=== PATIENT | male | born 1990 | race Hispanic/Latino ===

== ENCOUNTER 2018-11-20 06:57 | Emergency (ER) | payer SELFPAY ==
[2018-11-20] MEDS ORDERED: NA CHLORIDE 0.9% 1,000 ML ONE (07:26)
[2018-11-20] MEDS ORDERED: MORPHINE 4 MG/ML SYR ONE (07:26)
[2018-11-20] MEDS ORDERED: ONDANSETRON 4 MG/2 ML VIAL ONE (07:27)
[2018-11-20 07:56] LABS: Absolute Lymphocytes (CBC) 1.6 K/uL (0.7-4.9); Absolute Monocytes 0.6 K/uL (0.1-1.3); Absolute Neutrophil 5.8 K/uL (1.8-8.0); Basophils % 0.5 % (0-1.3); Eosinophils % 1.1 % (0-4.4); Hematocrit 42.4 % (39.6-49.0); Lymphocytes % 20.1 % (15.3-44.8); MPV 7.8 fL (7.6-11.3); Monocytes % 7.1 % (3.3-12.3); RBC Red Blood Cell Count 5.03 M/uL (4.33-5.43)
--- NOTE | 2018-11-20 08:09 | RAD REPORT ---
EXAM DESCRIPTION: CT - Stone Protocol - 11/20/2018 7:47 am CLINICAL HISTORY: Flank pain. left flank pain COMPARISON: No comparisons TECHNIQUE: Axial images were obtained without oral or IV contrast. Lack of contrast limits solid org an and vascular assessment. The [id number] spans the entirety of the system partially obscuring uppermost abdomen and lung bases. Coronal reformatted images were obtained and reviewed. All CT scans are performed using dose optimization technique as appropriate and may include automated exposure control or mA/KV adjustment according to patient size. FINDINGS: The lower lung shukla are clear. Imaged portions of the liver and spleen show no suspicious findings on non-contrast imaging. The panc reas and adrenal glands are normal. No pathologic lymphadenopathy in the abdomen or pelvis. 4 mm calculus (650 HU) is present in the distal left ureter with mild left hydronephrosis. No additio nal calculus identified. No bowel obstruction, free air, free fluid or abscess. Normal appendix noted. No significant bony abnormality. IMPRESSION: 4 mm calculus is present in the distal left ureter resulting in mild left hydronephrosis .
[2018-11-20 08:14] LABS: BUN Blood Urea Nitrogen 16 mg/dL (7-18); Bicarbonate 29 mmol/L (21-32); Glucose Level 146 mg/dL (74-106); Potassium 3.6 mmol/L (3.5-5.1); Sodium Level 144 mmol/L (136-145)
[2018-11-20] MEDS ORDERED: TAMSULOSIN 0.4 MG SR CAP ONE (08:37)
[2018-11-20] MEDS ORDERED: MAGNESIUM SULFATE 1 gm IVPB 1 GM/100 ML BAG IV ONE (08:37)
--- NOTE | 2018-11-20 09:07 | EDPHYS ---
Physician Documentation [facility] Name: Arnaud Gomez Age: 28 yrs Sex: Male : 1990 Arrival Date: 11/20/2018 Time: 06:58 Bed 20 Private MD: ED Physician Sawyer Armando HPI: 11/20 07:43 This 28 yrs old Male presents to ER via Ambulatory with complaints of Abd pain.rn 07:43 The patient complains of pain in the left mid back. The pain radiates to the pelvis. rn Onset: The symptoms/episode began/occurred this morning. Modifying factors: The symptoms are alleviated by nothing. the symptoms are aggravated by nothing. Severity of pain: At its worst the pain was moderate in the emergency department the pain has improved. The patient has not experienced similar symptoms in the past. This morning felt pain to flank, by time got to work, radiating to groin/testicle on left side, denies pain from testicle and no testicular tenderness or abnormality. No trauma. Reports pain coming in waves. . Historical: - Allergies: 07:08 No Known Allergies; hj - Home Meds: 07:08 None [Active]; hj - PMHx: 07:08 None; hj - PSHx: 07:08 None; hj - Immunization history:: Adult Immunizations up to date. - Social history:: Smoking status: Patient/guardian denies using tobacco, Patient/guardian denies using alcohol. - Ebola Screening: : Patient negative for fever greater than or equal to 101.5 degrees Fahrenheit, and additional compatible Ebola Virus Disease symptoms Patient denies exposure to infectious person Patient denies travel to an Ebola-affected area in the 21 days before illness onset. - Family history:: not pertinent. - Hospitalizations: : No recent hospitalization is reported. ROS: 07:43 Constitutional: Negative for fever, chills, and weight loss, Eyes: Negative for injury, rn pain, redness, and discharge, Cardiovascular: Negative for chest pain, palpitations, and edema, Respiratory: Negative for shortness of breath, cough, wheezing, and pleuritic chest pain, Abdomen/GI: + left flank pain Back: Negative for injury MS/Extremity: Negative for injury and deformity, Skin: Negative for injury, rash, and discoloration, Neuro: Negative for headache, weakness, numbness, tingling, and seizure. Exam: 07:43 Constitutional: This is a well developed, well nourished patient who is awake, alert, rn appears uncomfortable, but walking to room without assistance Head/Face: Normocephalic, atraumatic. Eyes: Pupils equal round and reactive to light, extra-ocular motions intact. Lids and lashes normal. Conjunctiva and sclera are non-icteric and not injected. Cornea within normal limits. Periorbital areas with no swelling, redness, or edema. ENT: MMM Abdomen/GI: soft, non-tender Back: No spinal tenderness. No costovertebral tenderness. Full range of motion. Skin: Warm, dry with normal turgor. Normal color with no rashes, no lesions, and no evidence of cellulitis. MS/ Extremity: Pulses equal, no cyanosis. Neurovascular intact. Full, normal range of motion. Equal circumference. Neuro: Awake and alert, GCS 15, oriented to person, place, time, and situation. Cranial nerves II-XII grossly intact. Motor strength 5/5 in all extremities. Sensory grossly intact. Cerebellar exam normal. Normal gait. Vital Signs: 07:09 BP 134 / 76; Pulse 102; Resp 18; Temp 97.2(TE); Pulse Ox 100% on R/A; Weight 87.54 kg; Height 5 ft. 4 in. (162.56 cm); Pain 10/10; 08:00 BP 128 / 74; Pulse 85; Resp 18; Pulse Ox 100% on R/A; hj 09:27 BP 108 / 75; Pulse 75; Resp 18; Pulse Ox 100% on R/A; 07:09 Body Mass Index 33.13 (87.54 kg, 162.56 cm) MDM: 06:59 Patient medically screened. rn 09:04 Differential diagnosis: nephrolithiasis. Data reviewed: vital signs, nurses notes, clinical lab assistant test result(s), radiologic studies, CT scan, and as a result, I will discharge patient. Counseling: I had a detailed discussion with the patient and/or guardian regarding: the historical points, exam findings, and any diagnostic results supporting the discharge/admit diagnosis, lab results, radiology results, the need for outpatient follow up, to return to the emergency department if symptoms worsen or persist or if there are any questions or concerns that arise at home. Response to treatment: the patient's symptoms have markedly improved after treatment, and as a result, I will discharge patient. Special discussion: I discussed with the patient/guardian in detail that at this point there is no indication for admission to the hospital. It is understood, however, that if the symptoms persist or worsen the patient needs to return immediately for re-evaluation. 11/20 07:07 Order name: Basic Metabolic Panel; Complete Time: 08:23 rn 11/20 07:07 Order name: CBC with Diff; Complete Time: 08:23 rn 11/20 07:07 Order name: CT Stone Protocol; Complete Time: 08:23 rn 11/20 09:01 Order name: Urine Dipstick--Ancillary (enter results) bd 11/20 07:07 Order name: IV Saline Lock; Complete Time: 07:55 rn 02 07:07 Order name: Labs collected and sent; Complete Time: 07:55 rn Administered Medications: 07:55 Drug: Zofran 4 mg Route: IVP; Site: left forearm; hj 08:23 Follow up: Response: No adverse reaction hj 07:55 Drug: morphine 4 mg Route: IVP; Site: left forearm; hj 08:23 Follow up: Response: No adverse reaction; Pain is decreased hj 07:56 Drug: NS 0.9% 1000 ml Route: IV; Rate: 1000 ml; Site: left forearm; hj 08:23 Follow up: IV Status: Completed infusion hj 08:11 Drug: Flomax 0.4 mg Route: PO; hj 08:59 Follow up: Response: No adverse reaction hj 08:11 Drug: Magnesium Sulfate 1 grams Route: IVPB; Infused Over: 1 hrs; Site: left forearm; hj 09:30 Follow up: IV Status: Completed infusion; IV Intake: 100ml hj 08:37 Drug: TORadol 30 mg Route: IVP; Site: left forearm; hj 09:31 Follow up: Response: No adverse reaction; Pain is decreased hj Disposition: 11/20/18 09:06 Discharged to Home. Impression: Ureterolithiasis. - Condition is Stable. - Discharge Instructions: Kidney Stones. - Prescriptions for Zofran ODT 4 mg Oral tablet,disintegrating - place 1 tablet by TRANSLINGUAL route every 8 hours As needed; 20 tablet. Ibuprofen 800 mg Oral Tablet - take 1 tablet by ORAL route every 12 hours As needed take with food; 20 tablet. Tylenol- Codeine #3 300-30 mg Oral Tablet - take 1 tablet by ORAL route every 6 hours As needed; 15 tablet. Flomax 0.4 mg Oral Capsule, Sust. Release 24 hr - take 1 capsule by ORAL route once daily 1/2 hour following the same meal each day; 3 capsule. - Medication Reconciliation Form, Thank You Letter, Antibiotic Education, Prescription Opioid Use, Work release form form. - Follow up: Private Physician; When: As needed; Reason: Recheck today's complaints, Re-evaluation by your physician. - Problem is new. - Symptoms have improved. Signatures: Dispatcher [employer] EDSawyer Rock MD MD rn Joaquin, Henry, RN RN hj Corrections: (The following items were deleted from the chart) 09:30 09:06 11/20/2018 09:06 Discharged to Home. Impression: Ureterolithiasis. Condition is hj Stable. Forms are Medication Reconciliation Form, Thank You Letter, Antibiotic Education, Prescription Opioid Use. Follow up: Private Physician; When: As needed; Reason: Recheck today's complaints, Re-evaluation by your physician. Problem is new. Symptoms have improved. rn
--- NOTE | 2018-11-20 09:07 | ER ---
Nurse's Notes [facility] Name: Arnaud Gomez Age: 28 yrs Sex: Male : 1990 Arrival Date: 11/20/2018 Time: 06:58 Bed 20 Private MD: Diagnosis: Ureterolithiasis Presentation: 11/20 07:06 Presenting complaint: Patient states: i woke up this morning with pain on my L flank hj area that moves to my L testicle, pain is 10/10; reports nausea, denies vomiting; denies fever and chills;. Transition of care: patient was not received from another setting of care. Onset of symptoms was November 20, 2018. Risk Assessment: Do you want to hurt yourself or someone else? Patient reports no desire to harm self or others. Initial Sepsis Screen: Does the patient meet any 2 criteria? No. Patient's initial sepsis screen is negative. Does the patient have a suspected source of infection? No. Patient's initial sepsis screen is negative. Care prior to arrival: None. 07:06 Method Of Arrival: Ambulatory 07:06 Acuity: KIKI 3 hj Triage Assessment: 07:09 General: Appears in no apparent distress. uncomfortable, Behavior is calm, cooperative, hj appropriate for age. Pain: Complains of pain in L flank, L testicle. Historical: - Allergies: 07:08 No Known Allergies; hj - Home Meds: 07:08 None [Active]; hj - PMHx: 07:08 None; hj - PSHx: 07:08 None; hj - Immunization history:: Adult Immunizations up to date. - Social history:: Smoking status: Patient/guardian denies using tobacco, Patient/guardian denies using alcohol. - Ebola Screening: : Patient negative for fever greater than or equal to 101.5 degrees Fahrenheit, and additional compatible Ebola Virus Disease symptoms Patient denies exposure to infectious person Patient denies travel to an Ebola-affected area in the 21 days before illness onset. - Family history:: not pertinent. - Hospitalizations: : No recent hospitalization is reported. Screenin:09 Abuse screen: Denies threats or abuse. Denies injuries from another. Nutritional hj screening: No deficits noted. Tuberculosis screening: No symptoms or risk factors identified. Fall Risk None identified. Assessment: 08:00 Reassessment: Patient and/or family updated on plan of care and expected duration. Pain hj level reassessed. Patient is alert, oriented x 3, equal unlabored respirations, skin warm/dry/pink. Patient states feeling better. Patient states symptoms have improved. 09:00 Reassessment: Patient and/or family updated on plan of care and expected duration. Pain hj level reassessed. Patient is alert, oriented x 3, equal unlabored respirations, skin warm/dry/pink. Patient states feeling better. Patient states symptoms have improved. awaiting results and POC;. 09:27 Reassessment: Patient and/or family updated on plan of care and expected duration. Pain hj level reassessed. Patient is alert, oriented x 3, equal unlabored respirations, skin warm/dry/pink. D/C instructions given;. Vital Signs: 07:09 BP 134 / 76; Pulse 102; Resp 18; Temp 97.2(TE); Pulse Ox 100% on R/A; Weight 87.54 kg; hj Height 5 ft. 4 in. (162.56 cm); Pain 10/10; 08:00 BP 128 / 74; Pulse 85; Resp 18; Pulse Ox 100% on R/A; hj 09:27 BP 108 / 75; Pulse 75; Resp 18; Pulse Ox 100% on R/A; hj 07:09 Body Mass Index 33.13 (87.54 kg, 162.56 cm) ED Course: 06:58 Patient arrived in ED. am2 06:59 Sawyer Armando MD is Attending Physician. rn 07:06 Nadeem Sullivan RN is Primary Nurse. hj 07:08 Triage completed. hj 07:09 Arm band placed on right wrist. hj 07:09 Patient has correct armband on for positive identification. Placed in gown. Bed in low hj position. Call light in reach. Side rails up X 1. 07:09 Initial lab(s) drawn, by ED staff, sent to lab. Inserted saline lock: 20 gauge in left hj forearm, using aseptic technique. ,using aseptic technique. SN Rebecca. 07:45 CT completed. Patient tolerated procedure well. Patient moved to CT via wheelchair. kw1 Patient moved back from CT. 07:54 CT Stone Protocol In Process Unspecified. EDMS 09:27 No provider procedures requiring assistance completed. IV discontinued, intact, hj bleeding controlled, No redness/swelling at site. Pressure dressing applied. Administered Medications: 07:55 Drug: Zofran 4 mg Route: IVP; Site: left forearm; hj 08:23 Follow up: Response: No adverse reaction hj 07:55 Drug: morphine 4 mg Route: IVP; Site: left forearm; hj 08:23 Follow up: Response: No adverse reaction; Pain is decreased hj 07:56 Drug: NS 0.9% 1000 ml Route: IV; Rate: 1000 ml; Site: left forearm; hj 08:23 Follow up: IV Status: Completed infusion hj 08:11 Drug: Flomax 0.4 mg Route: PO; hj 08:59 Follow up: Response: No adverse reaction hj 08:11 Drug: Magnesium Sulfate 1 grams Route: IVPB; Infused Over: 1 hrs; Site: left forearm; hj 09:30 Follow up: IV Status: Completed infusion; IV Intake: 100ml hj 08:37 Drug: TORadol 30 mg Route: IVP; Site: left forearm; hj 09:31 Follow up: Response: No adverse reaction; Pain is decreased hj Intake: 09:30 IV: 100ml; Total: 100ml. Outcome: 09:06 Discharge ordered by . rn 09:28 Discharged to home ambulatory. 09:28 Condition: stable 09:28 Discharge instructions given to patient, Instructed on discharge instructions, follow up and referral plans. medication usage, Demonstrated understanding of instructions, follow-up care, medications. 09:30 Patient left the ED. Signatures: Dispatcher [employer] EDMS Sawyer Armando MD MD rn Joaquin, Henry, RN RN hj Moreno, Amanda am2 Wilhelm, Kimberly 1 Corrections: (The following items were deleted from the chart) 07:18 07:09 Resp 18bpm; 87.54 kg; Height 5 ft. 4 in.; BMI: 33.1; Pain 10/10; [facility]
[2018-11-20] MEDS ORDERED: KETOROLAC 30 MG/ML INJ ONE (09:14)
[2018-11-20 09:38] LABS: Urine Blood 2+ (NEG); Urine Glucose NEGATIVE (NEG); Urine Protein NEGATIVE (NEG); Urine Specific Gravity 1.015 (1.005-1.030); Urine pH 6.5 (5.0-7.0)
== END 2018-11-20 09:30 | disposition home or self-care (01) ==
LOC: ER 06:57
DX: N20.1 Calculus of ureter (principal)
CPT/HCPCS: 36415; 74176; 76377; 80048; 81003; 85025; 96365; 96375; 99284; J2405; J3475; J7030

== ENCOUNTER 2019-03-04 07:55 | Emergency (ER) | payer SELFPAY ==
[2019-03-04 08:32] LABS: Absolute Lymphocytes (CBC) 0.8 K/uL (0.7-4.9); Absolute Monocytes 0.5 K/uL (0.1-1.3); Basophils % 0.3 % (0-1.3); Eosinophils % 0.4 % (0-4.4); Hematocrit 44.9 % (39.6-49.0); MPV 7.6 fL (7.6-11.3); RBC Red Blood Cell Count 5.28 M/uL (4.33-5.43)
--- NOTE | 2019-03-04 08:38 | RAD REPORT ---
EXAM DESCRIPTION: CT - Stone Protocol - 03/04/2019 8:25 am CLINICAL HISTORY: Flank pain. ABD PAIN COMPARISON: Stone Protocol dated 11/20/2018 TECHNIQUE: Axial images were obtained without oral or IV contrast. Lack of contrast limits solid org an and vascular assessment. The [id number] spans the entirety of the system partially obscuring uppermost abdomen and lung bases. Coronal reformatted images were obtained and reviewed. All CT scans are performed using dose optimization technique as appropriate and may include automated exposure control or mA/KV adjustment according to patient size. FINDINGS: The lower lung shukla are clear. Imaged portions of the liver and spleen show no suspicious findings on non-contrast imaging. The panc reas and adrenal glands are normal. No pathologic lymphadenopathy in the abdomen or pelvis. 4 mm stone (1070 HU) at the left UVJ resulting in mild left hydronephrosis and hydroureter. No right- sided stone or hydronephrosis. No bowel obstruction, free air, free fluid or abscess. Normal appendix noted. No significant bony abnormality. IMPRESSION: 4 mm stone at the left UVJ resulting in mild left hydronephrosis and hydroureter.
[2019-03-04 08:41] LABS: Potassium 3.6 mmol/L (3.5-5.1)
--- NOTE | 2019-03-04 09:12 | ER ---
Nurse's Notes [facility] Name: Arnaud Gomez Age: 28 yrs Sex: Male : 1990 Arrival Date: 03/04/2019 Time: 07:58 Bed 19 Private MD: Diagnosis: Calculus of kidney and ureter Presentation: 03/04 08:09 Presenting complaint: Patient states: i started having this L lower abd pain 3 am hj today, it seems like my stone act up again; denies fever and chills;. 08:09 Transition of care: patient was not received from another setting of care. Onset of hj symptoms was March 04, 2019. Risk Assessment: Do you want to hurt yourself or someone else? Patient reports no desire to harm self or others. Initial Sepsis Screen: Does the patient meet any 2 criteria? No. Patient's initial sepsis screen is negative. Does the patient have a suspected source of infection? No. Patient's initial sepsis screen is negative. Care prior to arrival: None. 08:09 Method Of Arrival: Ambulatory 08:09 Acuity: KIKI 3 hj Triage Assessment: 08:09 General: Appears in no apparent distress. uncomfortable, Behavior is calm, cooperative, hj appropriate for age. Pain: Complains of pain in right lower quadrant and left upper quadrant and right upper quadrant and left lower quadrant. EENT: No signs and/or symptoms were reported regarding the EENT system. Neuro: Level of Consciousness is awake, alert, obeys commands, Oriented to person, place, time, situation, Appropriate for age. Cardiovascular: Capillary refill < 3 seconds Patient's skin is warm and dry. Respiratory: Airway is patent Respiratory effort is even, unlabored, Respiratory pattern is regular, symmetrical. GI: Reports lower abdominal pain. : No signs and/or symptoms were reported regarding the genitourinary system. Derm: No signs and/or symptoms reported regarding the dermatologic system. Musculoskeletal: No signs and/or symptoms reported regarding the musculoskeletal system. Historical: - Allergies: 08:09 No Known Allergies; hj - Home Meds: 08:09 None [Active]; hj - PMHx: 08:09 Kidney stones; hj - PSHx: 08:09 None; hj - Immunization history:: Adult Immunizations up to date. - Social history:: Smoking status: Patient/guardian denies using tobacco, Patient uses alcohol, on a daily basis. - Ebola Screening: : Patient negative for fever greater than or equal to 101.5 degrees Fahrenheit, and additional compatible Ebola Virus Disease symptoms Patient denies exposure to infectious person Patient denies travel to an Ebola-affected area in the 21 days before illness onset. Screenin:09 Abuse screen: Denies threats or abuse. Denies injuries from another. Nutritional hj screening: No deficits noted. Tuberculosis screening: No symptoms or risk factors identified. Fall Risk None identified. Assessment: 08:09 GI: Bowel sounds present X 4 quads. Abd is soft Abdomen is tender to palpation. hj 08:09 Reassessment: see triage for assessment;. hj 09:25 Reassessment: Patient and/or family updated on plan of care and expected duration. Pain hj level reassessed. Patient is alert, oriented x 3, equal unlabored respirations, skin warm/dry/pink. IV mag running; for D/C;. Vital Signs: 08:09 BP 127 / 100; Pulse 69; Resp 18; Temp 97.8(O); Pulse Ox 100% on R/A; Weight 72.57 kg; hj Height 5 ft. 5 in. (165.10 cm); Pain 9/10; 09:25 BP 110 / 83; Pulse 70; Resp 18; Pulse Ox 100% on R/A; hj 10:17 BP 108 / 65; Pulse 68; Resp 18; Pulse Ox 100% on R/A; hj 08:09 Body Mass Index 26.63 (72.57 kg, 165.10 cm) ED Course: 07:58 Patient arrived in ED. rg4 08:03 Migdalia Billingsley FNP-C is PHCP. kb 08:03 Sawyer Armando MD is Attending Physician. kb 08:04 Nadeem Sullivan, CHRISTIANNE is Primary Nurse. hj 08:09 Arm band placed on right wrist. hj 08:09 Patient has correct armband on for positive identification. Bed in low position. Call light in reach. Side rails up X 1. 08:15 Triage completed. hj 08:15 Initial lab(s) drawn, by ar, sent to lab. Inserted saline lock: 22 gauge in left antecubital area, using aseptic technique. Blood collected. 08:20 CBC with Diff Sent. hj 08:20 Basic Metabolic Panel Sent. hj 08:25 CT Stone Protocol In Process Unspecified. EDMS 08:25 CT completed. Patient tolerated procedure well. Patient moved to CT via wheelchair. [id number] Patient moved back from CT. 09:11 Mackenzie Galan MD is Referral Physician. kb 10:15 No provider procedures requiring assistance completed. IV discontinued, intact, hj bleeding controlled, No redness/swelling at site. Pressure dressing applied. Administered Medications: 09:03 Drug: Magnesium Sulfate 1 grams Route: IVPB; Infused Over: 1 hrs; Site: left hj antecubital; : Follow up: IV Status: Infusion continued hj 10:16 Follow up: IV Status: Completed infusion; IV Intake: 100ml hj 09:03 Drug: Flomax 0.4 mg Route: PO; hj : Follow up: Response: No adverse reaction hj Intake: 10:16 IV: 100ml; Total: 100ml. hj Outcome: 09:11 Discharge ordered by MD. kb 10:15 Discharged to home ambulatory. hj 10:15 Condition: stable 10:15 Discharge instructions given to patient, Instructed on discharge instructions, follow up and referral plans. medication usage, Demonstrated understanding of instructions, follow-up care, medications, Prescriptions given X 4. 10:17 Patient left the ED. Signatures: Dispatcher [employer] Migdalia Steele, DAVID BARRON-Nadeem Dow, RN Dione Myers4 Gena Pandag6
--- NOTE | 2019-03-04 09:12 | EDPHYS ---
Physician Documentation [facility] Name: Arnaud Gomez Age: 28 yrs Sex: Male : 1990 Arrival Date: 03/04/2019 Time: 07:58 Bed 19 Private MD: ED Physician Sawyer Armando HPI: 03/04 08:11 This 28 yrs old Male presents to ER via Unassigned with complaints of Possible kb Kidney Stone. 08:11 The patient presents with abdominal pain in the left lower quadrant. Onset: The kb symptoms/episode began/occurred this morning, at 03:00. The symptoms do not radiate. Associated signs and symptoms: none. The symptoms are described as constant, sharp. Modifying factors: The symptoms are alleviated by nothing, the symptoms are aggravated by nothing. Severity of pain: At its worst the pain was moderate in the emergency department the pain is unchanged. The patient has experienced a previous episode, and the symptoms today are exactly the same, same as last time he had a kidney stone. The patient has not recently seen a physician. Historical: - Allergies: 08:09 No Known Allergies; hj - Home Meds: 08:09 None [Active]; hj - PMHx: 08:09 Kidney stones; hj - PSHx: 08:09 None; hj - Immunization history:: Adult Immunizations up to date. - Social history:: Smoking status: Patient/guardian denies using tobacco, Patient uses alcohol, on a daily basis. - Ebola Screening: : Patient negative for fever greater than or equal to 101.5 degrees Fahrenheit, and additional compatible Ebola Virus Disease symptoms Patient denies exposure to infectious person Patient denies travel to an Ebola-affected area in the 21 days before illness onset. ROS: 08:11 Constitutional: Negative for fever, chills, and weight loss, Neck: Negative for injury, kb pain, and swelling, Cardiovascular: Negative for chest pain, palpitations, and edema, Respiratory: Negative for shortness of breath, cough, wheezing, and pleuritic chest pain, Back: Negative for injury and pain, : Negative for injury, bleeding, discharge, and swelling, MS/Extremity: Negative for injury and deformity, Skin: Negative for injury, rash, and discoloration, Neuro: Negative for headache, weakness, numbness, tingling, and seizure. 08:11 Abdomen/GI: Positive for abdominal pain, Negative for nausea, vomiting, and diarrhea. Exam: 08:10 Constitutional: This is a well developed, well nourished patient who is awake, alert, kb and in no acute distress. Head/Face: Normocephalic, atraumatic. Chest/axilla: Normal chest wall appearance and motion. Nontender with no deformity. No lesions are appreciated. Cardiovascular: Regular rate and rhythm with a normal S1 and S2. No gallops, murmurs, or rubs. Normal PMI, no JVD. No pulse deficits. Respiratory: Lungs have equal breath sounds bilaterally, clear to auscultation and percussion. No rales, rhonchi or wheezes noted. No increased work of breathing, no retractions or nasal flaring. Back: No spinal tenderness. No costovertebral tenderness. Full range of motion. Skin: Warm, dry with normal turgor. Normal color with no rashes, no lesions, and no evidence of cellulitis. MS/ Extremity: Pulses equal, no cyanosis. Neurovascular intact. Full, normal range of motion. Neuro: Awake and alert, GCS 15, oriented to person, place, time, and situation. Cranial nerves II-XII grossly intact. Motor strength 5/5 in all extremities. Sensory grossly intact. Cerebellar exam normal. Normal gait. 08:10 Abdomen/GI: Inspection: abdomen appears normal, Bowel sounds: normal, in all quadrants, Palpation: soft, in all quadrants, nontender, in the right upper quadrant, left upper quadrant and right lower quadrant, moderate abdominal tenderness, in the left lower quadrant. Vital Signs: 08:09 BP 127 / 100; Pulse 69; Resp 18; Temp 97.8(O); Pulse Ox 100% on R/A; Weight 72.57 kg; hj Height 5 ft. 5 in. (165.10 cm); Pain 9/10; 09:25 BP 110 / 83; Pulse 70; Resp 18; Pulse Ox 100% on R/A; hj 10:17 BP 108 / 65; Pulse 68; Resp 18; Pulse Ox 100% on R/A; hj 08:09 Body Mass Index 26.63 (72.57 kg, 165.10 cm) MDM: 08:04 Patient medically screened. kb 08:10 Data reviewed: vital signs, nurses notes. Data interpreted: Pulse oximetry: on room air kb is 100 %. Interpretation: normal. 09:11 Counseling: I had a detailed discussion with the patient and/or guardian regarding: the kb historical points, exam findings, and any diagnostic results supporting the discharge/admit diagnosis, lab results, radiology results, the need for outpatient follow up, a urologist, to return to the emergency department if symptoms worsen or persist or if there are any questions or concerns that arise at home. 03/04 08:09 Order name: CBC with Diff; Complete Time: 08:34 kb 03/04 08:09 Order name: Basic Metabolic Panel; Complete Time: 08:45 kb 03/04 08:09 Order name: CT Stone Protocol; Complete Time: 08:45 kb 03/04 08:45 Order name: Urine Dipstick--Ancillary (enter results) bd 03/04 08:09 Order name: IV Saline Lock; Complete Time: 08:20 kb 03/04 08:09 Order name: Labs collected and sent; Complete Time: 08:20 kb 03/04 08:09 Order name: Urine Dipstick-Ancillary (obtain specimen); Complete Time: 08:45 kb Administered Medications: 09:03 Drug: Magnesium Sulfate 1 grams Route: IVPB; Infused Over: 1 hrs; Site: left antecubital; 09:27 Follow up: IV Status: Infusion continued 10:16 Follow up: IV Status: Completed infusion; IV Intake: 100ml 09:03 Drug: Flomax 0.4 mg Route: PO; 09:27 Follow up: Response: No adverse reaction Disposition: 11:56 Co-signature as Attending Physician, Sawyer Armando MD. rn Disposition: 03/04/19 09:11 Discharged to Home. Impression: Calculus of kidney and ureter. - Condition is Stable. - Discharge Instructions: Kidney Stones, [id number], Dietary Guidelines to Help Prevent Kidney Stones. - Prescriptions for Flomax 0.4 mg Oral Capsule, Sust. Release 24 hr - take 1 capsule by ORAL route once daily 1/2 hour following the same meal each day; 10 capsule. Diclofenac Sodium 75 mg Oral Tablet, Delayed Release (E.C.) - take 1 tablet by ORAL route 2 times per day As needed; 30 tablet. Macrobid 100 mg Oral Capsule - take 1 capsule by ORAL route every 12 hours for 7 days; 14 capsule. Tylenol- Codeine #3 300-30 mg Oral Tablet - take 1 tablet by ORAL route every 6 hours As needed; 6 tablet. - Work release form, Medication Reconciliation Form, Thank You Letter, Antibiotic Education, Prescription Opioid Use form. - Follow up: Private Physician; When: 2 - 3 days; Reason: Recheck today's complaints, Continuance of care, Re-evaluation by your physician. Follow up: Emergency Department; When: As needed; Reason: Worsening of condition. Follow up: Mackenzie Galan MD; When: 2 - 3 days; Reason: Recheck today's complaints. Signatures: Dispatcher [employer] EDMS Migdalia Billingsley, SERVICE ADVISOR-C SERVICE ADVISOR-Ckb Sawyer Armando MD MD rn Joaquin, Henry, RN RN hj Corrections: (The following items were deleted from the chart) 08:11 08:10 Abdomen/GI: Inspection: obese Bowel sounds: normal, in all quadrants, Palpation: kb soft, in all quadrants, nontender, in the right upper quadrant, left upper quadrant and right lower quadrant, moderate abdominal tenderness, in the left lower quadrant, kb 10:17 09:11 03/04/2019 09:11 Discharged to Home. Impression: Calculus of kidney and ureter. hj Condition is Stable. Forms are Medication Reconciliation Form, Thank You Letter, Antibiotic Education, Prescription Opioid Use. Follow up: Private Physician; When: 2 - 3 days; Reason: Recheck today's complaints, Continuance of care, Re-evaluation by your physician. Follow up: Emergency Department; When: As needed; Reason: Worsening of condition. Follow up: Mackenzie Galan; When: 2 - 3 days; Reason: Recheck today's complaints. kb
[2019-03-04] MEDS ORDERED: TAMSULOSIN 0.4 MG SR CAP ONE (09:22)
[2019-03-04] MEDS ORDERED: MAGNESIUM SULFATE 1 gm IVPB 1 GM/100 ML BAG IV ONE (09:22)
[2019-03-04 12:18] LABS: Urine Glucose NEGATIVE (NEG); Urine Specific Gravity 1.015 (1.005-1.030)
[2019-03-04 12:19] LABS: Urine Blood TRACE (NEG); Urine Protein NEGATIVE (NEG)
== END 2019-03-04 10:17 | disposition home or self-care (01) ==
LOC: ER 07:55
DX: N20.0 Calculus of kidney (principal)
CPT/HCPCS: 36415; 74176; 76377; 80048; 81003; 85025; 96365; 99284; J3475

== ENCOUNTER 2019-03-05 04:52 | Emergency (ER) | payer SELFPAY ==
[2019-03-05 05:26] LABS: Absolute Lymphocytes (CBC) 1.4 K/uL (0.7-4.9); Absolute Monocytes 0.4 K/uL (0.1-1.3); Absolute Neutrophil 6.9 K/uL (1.8-8.0); Basophils % 0.2 % (0-1.3); Hematocrit 42.5 % (39.6-49.0); Lymphocytes % 15.8 % (15.3-44.8); MPV 7.5 fL (7.6-11.3); RBC Red Blood Cell Count 4.99 M/uL (4.33-5.43)
[2019-03-05] MEDS ORDERED: TAMSULOSIN 0.4 MG SR CAP ONE (05:27)
[2019-03-05] MEDS ORDERED: CEFTRIAXONE/SWI 1gm 1 GM/10 ML SYR ONE (05:27)
[2019-03-05] MEDS ORDERED: MORPHINE 4 MG/ML SYR ONE ×2 (05:27→08:47)
[2019-03-05] MEDS ORDERED: KETOROLAC 30 MG/ML INJ ONE (05:27)
[2019-03-05] MEDS ORDERED: NA CHLORIDE 0.9% 2,000 ML ONE (05:27)
[2019-03-05] MEDS ORDERED: ONDANSETRON 4 MG/2 ML VIAL ONE ×2 (05:27→08:47)
[2019-03-05 05:40] LABS: Potassium 3.5 mmol/L (3.5-5.1)
--- NOTE | 2019-03-05 06:54 | ER ---
Nurse's Notes [facility] Name: Arnaud Gomez Age: 28 yrs Sex: Male : 1990 Arrival Date: 03/05/2019 Time: 04:55 Bed 7 Private MD: Diagnosis: Hydronephrosis with renal and ureteral calculous obstruction Presentation: 03/05 05:04 Presenting complaint: Patient states: he was seen in ER yesterday morning dx kidney ak1 stone. pt stated he overslept and did not have his medications filled at the pharmacy. pt c/o increased pain this morning starting at 0200. Transition of care: patient was not received from another setting of care. Onset of symptoms is unknown. Risk Assessment: Do you want to hurt yourself or someone else? Patient reports no desire to harm self or others. Initial Sepsis Screen: Does the patient meet any 2 criteria? No. Patient's initial sepsis screen is negative. Does the patient have a suspected source of infection? No. Patient's initial sepsis screen is negative. Care prior to arrival: None. 05:04 Method Of Arrival: Ambulatory ak1 05:04 Acuity: KIKI 3 ak1 Triage Assessment: 05:07 General: Appears in no apparent distress. Behavior is calm, cooperative. Pain: ak1 Complains of pain in left flank, left lower abd. Historical: - Allergies: 05:06 No Known Allergies; ak1 - Home Meds: 05:06 None [Active]; ak1 - PMHx: 05:06 Kidney stones; ak1 - PSHx: 05:06 Hernia repair; ak1 - Immunization history:: Adult Immunizations unknown. - Social history:: Smoking status: Patient/guardian denies using tobacco. - Ebola Screening: : No symptoms or risks identified at this time. Screenin:07 Abuse screen: Denies threats or abuse. Denies injuries from another. Nutritional ak1 screening: No deficits noted. Tuberculosis screening: No symptoms or risk factors identified. Fall Risk None identified. Assessment: 05:24 General: Appears in no apparent distress. comfortable, Behavior is calm, cooperative, aa1 appropriate for age. Pain: Complains of pain in left lower quadrant and left upper quadrant and posterior aspect of left lateral abdomen and anterior aspect of left lateral abdomen and left mid back and left low back. Neuro: Level of Consciousness is awake, alert, obeys commands, Oriented to person, place, time, situation, Moves all extremities. Full function Gait is steady. Respiratory: Airway is patent Respiratory effort is even, unlabored, Respiratory pattern is regular, symmetrical. GI: Abdomen is non-distended, Reports lower abdominal pain, upper abdominal pain. : Reports pain in left flank(s), in lower back. EENT: No signs and/or symptoms were reported regarding the EENT system. Derm: Skin is intact, is healthy with good turgor, Skin is pink, warm \T\ dry. Musculoskeletal: Circulation, motion, and sensation intact. Capillary refill < 3 seconds, Range of motion: intact in all extremities. 06:47 Reassessment: Patient appears in no apparent distress at this time. Patient and/or aa1 family updated on plan of care and expected duration. Pain level reassessed. Patient is alert, oriented x 3, equal unlabored respirations, skin warm/dry/pink. Radiology at bedside for KUB. 07:15 Reassessment: RECD REPORT FROM DAYANNA FAUST. 28 HM P/W L FLANK PAIN. KUB COMPLETED, bp RESULTS PENDING FOR DISPO. 08:14 Reassessment: D/C STILL ON HOLD PENDING KUB RESULTS. bp 09:25 Reassessment: PT D/C HOME AMBULATORY WITH FAMILY, DX WITH HYDRONEPHROSIS AND RENAL bp CALCULUS. Vital Signs: 05:04 BP 139 / 92; Pulse 72; Resp 18; Temp 97.9(O); Pulse Ox 99% on R/A; Weight 88.45 kg (R); ak1 Height 5 ft. 1 in. (154.94 cm) (R); Pain 10/10; 06:00 BP 125 / 63; Pulse 64; Resp 18; Pulse Ox 98% on R/A; aa1 06:47 BP 113 / 76; Pulse 83; Resp 18; Pulse Ox 99% on R/A; Pain 7/10; aa1 07:17 BP 113 / 77; Pulse 51; Resp 16; Temp 98; Pulse Ox 98% ; bp 09:15 BP 119 / 76; Pulse 59; Resp 16; Temp 98; Pulse Ox 98% ; bp 05:04 Body Mass Index 36.84 (88.45 kg, 154.94 cm) il1 ED Course: 04:55 Patient arrived in ED. es 05:03 Willie Jose MD is Attending Physician. yoko 05:05 Triage completed. ak1 05:06 Arm band placed on Patient placed in an exam room, on a stretcher, on pulse oximetry, ak1 Patient notified of wait time. 05:07 Patient has correct armband on for positive identification. Placed in gown. Bed in low ak1 position. Call light in reach. Side rails up X 1. Pulse ox on. NIBP on. 05:10 Inserted saline lock: 20 gauge in right antecubital area, using aseptic technique. cc3 Blood collected. 06:53 Mackenzie Galan MD is Referral Physician. yoko 07:05 Abdomen 1 View (KUB) XRAY In Process Unspecified. EDMS 07:11 Hilario Callahan, CHRISTIANNE is Primary Nurse. bp 09:26 No provider procedures requiring assistance completed. IV discontinued, intact, bp bleeding controlled, No redness/swelling at site. Pressure dressing applied. Administered Medications: 05:20 Drug: Flomax 0.4 mg Route: PO; aa1 06:20 Follow up: Response: No adverse reaction aa1 05:22 Drug: NS 0.9% 1000 ml Route: IV; Rate: 1 bolus; Site: right antecubital; aa1 07:00 Follow up: IV Status: Completed infusion; IV Intake: 1000ml bp 05:22 Drug: NS 0.9% 1000 ml Route: IV; Rate: 1 bolus; Site: right antecubital; aa1 06:07 Follow up: IV Status: Completed infusion; IV Intake: 1000ml aa1 05:22 Drug: TORadol 30 mg Route: IVP; Site: right antecubital; aa1 06:22 Follow up: Response: No adverse reaction; Pain is decreased aa1 05:23 Drug: Zofran 4 mg Route: IVP; Site: right antecubital; aa1 06:23 Follow up: Response: No adverse reaction aa1 05:25 Drug: morphine 4 mg Route: IVP; Site: right antecubital; aa1 06:25 Follow up: Response: No adverse reaction; Pain is decreased aa1 05:25 Drug: Rocephin 1 grams Route: IV; Rate: calculated rate; Site: right antecubital; aa1 06:00 Follow up: IV Intake: 20ml bp 09:28 Follow up: IV Status: Completed infusion; IV Intake: 20ml bp 05:28 CANCELLED (Other Intervention Used): Rocephin - (cefTRIAXone) 1 grams IVPB once over 30 aa1 mins; (mix in 50 mL NS) 08:39 Drug: morphine 4 mg Route: IVP; Site: right antecubital; bp 09:14 Follow up: Response: No adverse reaction bp 08:39 Drug: Zofran 4 mg Route: IVP; Site: right antecubital; bp 09:14 Follow up: Response: No adverse reaction bp Intake: 06:00 IV: 20ml; Total: 20ml. bp 06:07 IV: 1000ml; Total: 1020ml. aa1 07:00 IV: 1000ml; Total: 2020ml. bp 09:28 IV: 20ml; Total: 2040ml. bp Outcome: 06:53 Discharge ordered by . yoko 09:26 Discharged to home ambulatory, with family. bp 09:26 Condition: stable 09:26 Discharge instructions given to patient, Instructed on discharge instructions, follow up and referral plans. medication usage, Demonstrated understanding of instructions, follow-up care, medications, Prescriptions given X 4. 09:28 Patient left the ED. bp Signatures: Dispatcher [employer] EDMS Dayanna Chilel RN RN aa1 Willie Jose MD MD cha Salyer, Edna es Krenek, Amber RN RN ak1 Hilario Callahan RN RN Shabana Marx cc3 Corrections: (The following items were deleted from the chart) 08:23 07:15 Reassessment: RECD REPORT FROM DAYANNA FAUST. 28 HM P/W L FLANK PAIN. CT CCOMPLETED, bp RESULTS PENDING FOR DISPO bp 08:23 08:14 Reassessment: D/C STILL ON HOLD PENDING CT RESULTS bp bp
--- NOTE | 2019-03-05 06:54 | EDPHYS ---
Physician Documentation [facility] Name: Arnaud Gomez Age: 28 yrs Sex: Male : 1990 Arrival Date: 03/05/2019 Time: 04:55 Bed 7 Private MD: ED Physician Willie Jose HPI: 03/05 05:08 This 28 yrs old Male presents to ER via Ambulatory with complaints of Flank yoko Pain, Leg Pain. 05:08 The patient complains of pain in the left low back and left mid back. The pain radiates yoko to the left low back and left mid back. Onset: The symptoms/episode began/occurred 1 day(s) ago. Modifying factors: The symptoms are alleviated by nothing. the symptoms are aggravated by nothing. Associated signs and symptoms: The patient has no apparent associated signs or symptoms. Severity of pain: At its worst the pain was moderate in the emergency department the pain is unchanged. The patient has not experienced similar symptoms in the past. Historical: - Allergies: 05:06 No Known Allergies; ak1 - Home Meds: 05:06 None [Active]; ak1 - PMHx: 05:06 Kidney stones; ak1 - PSHx: 05:06 Hernia repair; ak1 - Immunization history:: Adult Immunizations unknown. - Social history:: Smoking status: Patient/guardian denies using tobacco. - Ebola Screening: : No symptoms or risks identified at this time. ROS: 05:09 Constitutional: Negative for fever, chills, and weight loss, Eyes: Negative for injury, yoko pain, redness, and discharge, ENT: Negative for injury, pain, and discharge, Neck: Negative for injury, pain, and swelling, Cardiovascular: Negative for chest pain, palpitations, and edema, Respiratory: Negative for shortness of breath, cough, wheezing, and pleuritic chest pain, : Negative for injury, bleeding, discharge, and swelling, MS/Extremity: Negative for injury and deformity, Skin: Negative for injury, rash, and discoloration, Neuro: Negative for headache, weakness, numbness, tingling, and seizure, Psych: Negative for depression, anxiety, suicide ideation, homicidal ideation, and hallucinations, Allergy/Immunology: Negative for hives, rash, and allergies, Endocrine: Negative for neck swelling, polydipsia, polyuria, polyphagia, and marked weight changes, Hematologic/Lymphatic: Negative for swollen nodes, abnormal bleeding, and unusual bruising. 05:09 Abdomen/GI: Positive for abdominal pain, abdominal cramps, of the anterior aspect of left lateral abdomen, posterior aspect of left lateral abdomen, left upper quadrant and left lower quadrant. Exam: 05:09 Constitutional: This is a well developed, well nourished patient who is awake, alert, yoko and in no acute distress. Head/Face: Normocephalic, atraumatic. Eyes: Pupils equal round and reactive to light, extra-ocular motions intact. Lids and lashes normal. Conjunctiva and sclera are non-icteric and not injected. Cornea within normal limits. Periorbital areas with no swelling, redness, or edema. ENT: Nares patent. No nasal discharge, no septal abnormalities noted. Tympanic membranes are normal and external auditory canals are clear. Oropharynx with no redness, swelling, or masses, exudates, or evidence of obstruction, uvula midline. Mucous membranes moist. Neck: Trachea midline, no thyromegaly or masses palpated, and no cervical lymphadenopathy. Supple, full range of motion without nuchal rigidity, or vertebral point tenderness. No Meningismus. Chest/axilla: Normal chest wall appearance and motion. Nontender with no deformity. No lesions are appreciated. Cardiovascular: Regular rate and rhythm with a normal S1 and S2. No gallops, murmurs, or rubs. Normal PMI, no JVD. No pulse deficits. Respiratory: Lungs have equal breath sounds bilaterally, clear to auscultation and percussion. No rales, rhonchi or wheezes noted. No increased work of breathing, no retractions or nasal flaring. Male : Normal genitalia with no discharge or lesions. Skin: Warm, dry with normal turgor. Normal color with no rashes, no lesions, and no evidence of cellulitis. MS/ Extremity: Pulses equal, no cyanosis. Neurovascular intact. Full, normal range of motion. Neuro: Awake and alert, GCS 15, oriented to person, place, time, and situation. Cranial nerves II-XII grossly intact. Motor strength 5/5 in all extremities. Sensory grossly intact. Cerebellar exam normal. Normal gait. Psych: Awake, alert, with orientation to person, place and time. Behavior, mood, and affect are within normal limits. 05:09 Abdomen/GI: Inspection: abdomen appears normal, Bowel sounds: normal, Palpation: soft, nontender, Liver: no appreciated palpable abnormalities, Hernia: not appreciated. Vital Signs: 05:04 BP 139 / 92; Pulse 72; Resp 18; Temp 97.9(O); Pulse Ox 99% on R/A; Weight 88.45 kg (R); ak1 Height 5 ft. 1 in. (154.94 cm) (R); Pain 10/10; 06:00 BP 125 / 63; Pulse 64; Resp 18; Pulse Ox 98% on R/A; aa1 06:47 BP 113 / 76; Pulse 83; Resp 18; Pulse Ox 99% on R/A; Pain 7/10; aa1 07:17 BP 113 / 77; Pulse 51; Resp 16; Temp 98; Pulse Ox 98% ; bp 09:15 BP 119 / 76; Pulse 59; Resp 16; Temp 98; Pulse Ox 98% ; bp 05:04 Body Mass Index 36.84 (88.45 kg, 154.94 cm) [facility] MDM: 05:03 Patient medically screened. [facility] 05:10 Data reviewed: vital signs, nurses notes, lab test result(s), radiologic studies, CT [facility] scan, plain films. 03/05 05:07 Order name: Basic Metabolic Panel; Complete Time: 06:03 [facility] 03/05 05:07 Order name: CBC with Diff; Complete Time: 06:03 [facility] 03/05 05:07 Order name: Creatinine for Radiology; Complete Time: 06:03 [facility] 03/05 05:07 Order name: Abdomen 1 View (KUB) XRAY [facility] 03/05 08:12 Order name: Urine Dipstick--Ancillary (enter results) [facility] 03/05 05:07 Order name: IV Saline Lock; Complete Time: 05:17 [facility] 03/05 05:07 Order name: Labs collected and sent; Complete Time: 05:17 [facility] Administered Medications: 05:20 Drug: Flomax 0.4 mg Route: PO; aa1 06:20 Follow up: Response: No adverse reaction aa 05:22 Drug: NS 0.9% 1000 ml Route: IV; Rate: 1 bolus; Site: right antecubital; aa1 07:00 Follow up: IV Status: Completed infusion; IV Intake: 1000ml bp 05:22 Drug: NS 0.9% 1000 ml Route: IV; Rate: 1 bolus; Site: right antecubital; aa1 06:07 Follow up: IV Status: Completed infusion; IV Intake: 1000ml aa1 05:22 Drug: TORadol 30 mg Route: IVP; Site: right antecubital; aa1 06:22 Follow up: Response: No adverse reaction; Pain is decreased aa1 05:23 Drug: Zofran 4 mg Route: IVP; Site: right antecubital; aa1 06:23 Follow up: Response: No adverse reaction aa1 05:25 Drug: morphine 4 mg Route: IVP; Site: right antecubital; aa1 06:25 Follow up: Response: No adverse reaction; Pain is decreased aa1 05:25 Drug: Rocephin 1 grams Route: IV; Rate: calculated rate; Site: right antecubital; aa1 06:00 Follow up: IV Intake: 20ml bp 09:28 Follow up: IV Status: Completed infusion; IV Intake: 20ml bp 05:28 CANCELLED (Other Intervention Used): Rocephin - (cefTRIAXone) 1 grams IVPB once over 30 aa1 mins; (mix in 50 mL NS) 08:39 Drug: morphine 4 mg Route: IVP; Site: right antecubital; bp 09:14 Follow up: Response: No adverse reaction bp 08:39 Drug: Zofran 4 mg Route: IVP; Site: right antecubital; bp 09:14 Follow up: Response: No adverse reaction bp Disposition: 03/05/19 06:53 Discharged to Home. Impression: Hydronephrosis with renal and ureteral calculous obstruction. - Condition is Stable. - Discharge Instructions: Kidney Stones, Kidney Stones, [id number], Hydronephrosis, Dietary Guidelines to Help Prevent Kidney Stones. - Prescriptions for Tylenol- Codeine #3 300-30 mg Oral Tablet - take 2 tablet by ORAL route every 6 hours As needed; 30 tablet. Zofran 4 mg Oral Tablet - take 1 tablet by ORAL route every 12 hours As needed; 20 tablet. Flomax 0.4 mg Oral Capsule, Sust. Release 24 hr - take 1 capsule by ORAL route once daily 1/2 hour following the same meal each day; 30 capsule. Cipro 500 mg Oral Tablet - take 1 tablet by ORAL route every 12 hours for 7 days; 14 tablet. - Medication Reconciliation Form, Thank You Letter, Antibiotic Education, Prescription Opioid Use, Work release form form. - Follow up: Private Physician; When: 2 - 3 days; Reason: Recheck today's complaints, Continuance of care, Re-evaluation by your physician. Follow up: Mackenzie Galan; When: 2 - 3 days; Reason: Recheck today's complaints, Continuance of care, Re-evaluation by your physician. - Problem is new. - Symptoms have improved. Signatures: Dispatcher [employer] EDJess Avina RN RN aa1 Willie Jose MD MD cha Krenek, Amber RN RN ak1 Hilario Callahan RN RN bp Corrections: (The following items were deleted from the chart) 05:28 05:08 Rocephin - (cefTRIAXone) 1 grams IVPB once over 30 mins; (mix in 50 mL NS) aa1 ordered. [facility] 09:28 06:53 03/05/2019 06:53 Discharged to Home. Impression: Hydronephrosis with renal and bp ureteral calculous obstruction. Condition is Stable. Discharge Instructions: Kidney Stones, Kidney Stones, Peel-mx-Lbin, Hydronephrosis, Dietary Guidelines to Help Prevent Kidney Stones. Prescriptions for Tylenol-Codeine #3 300-30 mg Oral Tablet - take 2 tablet by ORAL route every 6 hours As needed; 30 tablet, Zofran 4 mg Oral Tablet - take 1 tablet by ORAL route every 12 hours As needed; 20 tablet, Flomax 0.4 mg Oral Capsule, Sust. Release 24 hr - take 1 capsule by ORAL route once daily 1/2 hour following the same meal each day; 30 capsule, Cipro 500 mg Oral Tablet - take 1 tablet by ORAL route every 12 hours for 7 days; 14 tablet. and Forms are Medication Reconciliation Form, Thank You Letter, Antibiotic Education, Prescription Opioid Use. Follow up: Private Physician; When: 2 - 3 days; Reason: Recheck today's complaints, Continuance of care, Re-evaluation by your physician. Follow up: Mackenzie Galan; When: 2 - 3 days; Reason: Recheck today's complaints, Continuance of care, Re-evaluation by your physician. Problem is new. Symptoms have improved. yoko
[2019-03-05 08:39] LABS: Urine Blood TRACE (NEG); Urine Glucose NEGATIVE (NEG); Urine Protein NEGATIVE (NEG); Urine Specific Gravity 1.015 (1.005-1.030)
--- NOTE | 2019-03-05 08:57 | RAD REPORT ---
EXAM DESCRIPTION: RAD - Abdomen 1 View (KUB) - 03/05/2019 7:05 am CLINICAL HISTORY: Abdominal pain, flank pain, history of kidney stone diagnosis COMPARISON: CT study March 04 FINDINGS: Faint calcification is present lower left pelvic floor corresponding in size and location to the obstructing UVJ calculus detailed on the CT study. No evidence for change in positioning. No bladder calculus suspected. No other renal or ureteral calculi seen. No obstruction, free air or pneumatosis. Bowel gas pattern is nonspecific. No significant bony findings IMPRESSION: Obstructing calculus at the left UVJ detailed on the March 04 CT study has not changed in position. No other acute finding.
== END 2019-03-05 09:28 | disposition home or self-care (01) ==
LOC: ER 04:52
DX: N13.2 Hydronephrosis with renal and ureteral calculous obstruction (principal)
CPT/HCPCS: 36415; 74018; 80048; 81003; 85025; 96365; 96366; 96375; 99284; J0696; J2405; J7030

== ENCOUNTER 2019-11-23 18:07 | Emergency (ER) | payer SELFPAY ==
[2019-11-23] MEDS ORDERED: IPRATROPIUM BROM 0.5MG/2.5ML ONE (18:47)
[2019-11-23] MEDS ORDERED: ALBUTEROL 2.5 MG/3 ML NEB SOL ONE (18:47)
[2019-11-23] MEDS ORDERED: KETOROLAC 30 MG/ML INJ ONE (18:48)
--- NOTE | 2019-11-23 19:51 | RAD REPORT ---
EXAM DESCRIPTION: RAD - Chest Pa And Lat (2 Views) - 11/23/2019 7:41 pm CLINICAL HISTORY: COUGH Chest pain. COMPARISON: Abdomen 1 View (KUB) dated 03/05/2019 FINDINGS: A pleural based opacity is present in the left apex which may represent developing pneumon ia or be related to prior infection/scarring. The lungs are otherwise clear. The heart is normal in s ize. No displaced fractures.
--- NOTE | 2019-11-23 20:22 | ER ---
Nurse's Notes [facility] Name: Arnaud Gomez Age: 29 yrs Sex: Male : 1990 Arrival Date: 11/23/2019 Time: 18:09 Bed 15 Private MD: Diagnosis: Influenza due to other identified influenza virus-influenza B;Pneumonia due to other specified bacteria Presentation: 11/23 18:16 Presenting complaint: Patient states: Started having a cough on Sunday, when he coughed rb1 he felt his ribs pop on the left side. Denies fever. Reports SOB. Transition of care: patient was not received from another setting of care. Onset of symptoms was November 21, 2019. Risk Assessment: Do you want to hurt yourself or someone else?. 18:16 Method Of Arrival: Ambulatory [facility] 18:16 Acuity: KIKI 3 rb1 18:20 Initial Sepsis Screen: Does the patient meet any 2 criteria? No. Patient's initial vc sepsis screen is negative. Does the patient have a suspected source of infection? No. Patient's initial sepsis screen is negative. Care prior to arrival: None. Triage Assessment: 18:21 General: Appears uncomfortable, Behavior is calm, cooperative, Denies fever. Pain: rb1 Complains of pain in left lateral ribs Pain currently is 7 out of 10 on a pain scale. at worst was 10 out of 10 on a pain scale. Aggravated by coughing. Neuro: Level of Consciousness is awake, alert, obeys commands, Oriented to person, place, time, situation. Respiratory: Reports shortness of breath cough that is Reports shallow breathing due to painful inspirations. Airway is patent Respiratory effort is even, unlabored, Respiratory pattern is regular, symmetrical. GI: No signs and/or symptoms were reported involving the gastrointestinal system. Derm: Skin is pink, warm \T\ dry. Historical: - Allergies: 18:21 No Known Allergies; rb1 - PMHx: 18:21 Kidney stones; rb1 - PSHx: 18:21 Hernia repair; rb1 - Immunization history:: Adult Immunizations up to date. - Coronavirus screen:: The patient has NOT traveled to [place], [place], or [place] in the past 14 days. The patient has NOT had contact with known/suspected case of Coronavirus?. - Social history:: Smoking status: Patient/guardian denies using. - Ebola Screening: : Patient negative for fever greater than or equal to 101.5 degrees Fahrenheit, and additional compatible Ebola Virus Disease symptoms. Screenin:30 Abuse screen: Denies threats or abuse. Nutritional screening: No deficits noted. vc Tuberculosis screening: No symptoms or risk factors identified. Fall Risk None identified. Assessment: 18:30 General: Appears in no apparent distress. comfortable, ill, Behavior is calm, vc cooperative, appropriate for age. Pain: Complains of pain in LEFT LOWER RIBS. Neuro: Level of Consciousness is awake, alert, obeys commands, Oriented to person, place, time, situation, Appropriate for age. Cardiovascular: Capillary refill < 3 seconds Patient's skin is warm and dry. Respiratory: Respiratory effort is even, unlabored, Respiratory pattern is regular, symmetrical. GI: : No signs and/or symptoms were reported regarding the genitourinary system. EENT: No signs and/or symptoms were reported regarding the EENT system. Derm: Skin is intact, is healthy with good turgor, Skin temperature is warm. Musculoskeletal: Circulation, motion, and sensation intact. 19:30 Reassessment: Patient and/or family updated on plan of care and expected duration. Pain vc level reassessed. Patient is alert, oriented x 3, equal unlabored respirations, skin warm/dry/pink. 20:30 Reassessment: Patient and/or family updated on plan of care and expected duration. Pain vc level reassessed. Patient is alert, oriented x 3, equal unlabored respirations, skin warm/dry/pink. Patient states symptoms have improved. 21:00 Reassessment: Patient and/or family updated on plan of care and expected duration. Pain vc level reassessed. Patient is alert, oriented x 3, equal unlabored respirations, skin warm/dry/pink. Patient states feeling better. Patient states symptoms have improved. Vital Signs: 18:21 BP 151 / 79; Pulse 94; Resp 19; Temp 98.1(O); Pulse Ox 99% on R/A; Weight 98.88 kg (R); rb1 Height 5 ft. 4 in. (162.56 cm) (R); Pain 7/10; 18:21 Body Mass Index 37.42 (98.88 kg, 162.56 cm) rb1 ED Course: 18:09 Patient arrived in ED. as 18:21 Triage completed. rb1 18:21 Arm band placed on right wrist. rb1 18:30 Willie Espino PA is PHCP. cp 18:30 Sawyer Armando MD is Attending Physician. cp 18:30 Patient has correct armband on for positive identification. Bed in low position. Side vc rails up X 1. 18:41 Zeina South, CHRISTIANNE is Primary Nurse. vc 18:45 Influenza Screen (a \T\ B) Sent. 5 18:46 Strep Sent. 5 18:46 Flu and/or RSV swab sent to lab. Strep swab sent to lab. 5 19:43 XRAY Chest Pa And Lat (2 Views) In Process Unspecified. EDMS 21:10 No provider procedures requiring assistance completed. Patient did not have IV access vc during this emergency room visit. Administered Medications: 19:01 Drug: Albuterol 2.5 mg Route: Inhalation; vc 19:01 Drug: AtroVENT Aerosol 0.5 mg Route: Inhalation; vc 19:01 Drug: TORadol 60 mg Route: IM; Site: right vastus lateralis; vc 20:00 Follow up: Response: No adverse reaction; Pain is unchanged, physician notified vc 20:30 Drug: Rocephin (cefTRIAXone) 1 grams Route: IM; Site: left vastus lateralis; vc 20:30 Drug: Tamiflu 75 mg Route: PO; vc 20:30 Drug: Zithromax 500 mg Route: PO; vc 20:30 Drug: Hydrocodone-Acetaminophen (7.5 mg-500 mg) 1 tabs {Note: RASS 0.} Route: PO; vc Outcome: 20:20 Discharge ordered by . cp 21:10 Discharged to home ambulatory, with family. vc 21:10 Condition: good 21:10 Discharge instructions given to patient. 21:11 Patient left the ED. vc Signatures: Dispatcher [employer] EDNM Alem Adorno as Willie Espino PA PA cp Barber, Rebecca, RN RN [facility] Maggi Adorno [facility] Zeina South, CHRISTIANNE RN vc
--- NOTE | 2019-11-23 20:22 | EDPHYS ---
Physician Documentation [facility] Name: Arnaud Gomez Age: 29 yrs Sex: Male : 1990 Arrival Date: 11/23/2019 Time: 18:09 Bed 15 Private MD: ED Physician Sawyer Armando HPI: 11/23 18:40 This 29 yrs old Male presents to ER via Ambulatory with complaints of Cough, cp Rib Pain. 18:40 The patient or guardian reports cough, that is intermittent, with productive sputum. cp Onset: The symptoms/episode began/occurred 2 day(s) ago. Severity of symptoms: in the emergency department the symptoms are unchanged, despite home interventions. Associated signs and symptoms: Pertinent positives: chest pain, with cough, with movement, sore throat, Pertinent negatives: diarrhea, fever, vomiting. Historical: - Allergies: 18:21 No Known Allergies; rb1 - PMHx: 18:21 Kidney stones; rb1 - PSHx: 18:21 Hernia repair; rb1 - Immunization history:: Adult Immunizations up to date. - Coronavirus screen:: The patient has NOT traveled to [place], [place], or [place] in the past 14 days. The patient has NOT had contact with known/suspected case of Coronavirus?. - Social history:: Smoking status: Patient/guardian denies using. - Ebola Screening: : Patient negative for fever greater than or equal to 101.5 degrees Fahrenheit, and additional compatible Ebola Virus Disease symptoms. ROS: 18:45 Constitutional: Positive for fever, poor PO intake. cp 18:45 Eyes: Negative for injury, pain, redness, and discharge. cp 18:45 ENT: Positive for sore throat, Negative for drainage from ear(s), ear pain, difficulty swallowing, difficulty handling secretions. 18:45 Cardiovascular: Positive for chest pain, with cough, of the left lateral chest, Negative for edema, palpitations. 18:45 Respiratory: Positive for cough, shortness of breath, Negative for wheezing. 18:45 Abdomen/GI: Negative for abdominal pain, nausea, vomiting, and diarrhea. 18:45 Back: Negative for radiated pain. 18:45 Skin: Negative for rash. 18:45 Neuro: Negative for altered mental status, headache, syncope, weakness. 18:45 All other systems are negative. Exam: 18:50 Constitutional: The patient appears in no acute distress, alert, awake, cp non-diaphoretic, non-toxic, well developed, well nourished, uncomfortable. 18:50 Head/Face: Normocephalic, atraumatic. cp 18:50 Eyes: Periorbital structures: appear normal, Conjunctiva: normal, no exudate, no injection, Sclera: no appreciated abnormality, Lids and lashes: appear normal, bilaterally. 18:50 ENT: External ear(s): are unremarkable, Ear canal(s): are normal, clear, TM's: bulging, is not appreciated, bilaterally, dullness, bilaterally, erythema, is not appreciated, bilaterally, Nose: is normal, Mouth: Lips: moist, Oral mucosa: moist, Posterior pharynx: Airway: no evidence of obstruction, patent, Tonsils: no enlargement, no exudate, erythema, that is mild, exudate, is not appreciated. 18:50 Neck: ROM/movement: is normal, is supple, no meningismus, no nuchal rigidity. 18:50 Chest/axilla: Inspection: normal, Palpation: crepitus, is not appreciated, tenderness, that is moderate, of the lower left lateral anterior chest and lower left lateral posterior chest. 18:50 Cardiovascular: Rate: normal, Rhythm: regular, Edema: is not appreciated, JVD: is not appreciated. 18:50 Respiratory: the patient does not display signs of respiratory distress, Respirations: labored breathing, is not present, asymmetrical chest movement, is not seen, accessory muscle usage, is absent, shallow respirations, that is mild, tachypnea, is not appreciated, Breath sounds: bronchial sounds, that are mild, are heard in the left posterior lower lobe, decreased breath sounds, are not appreciated, wheezing: is not appreciated. 18:50 Abdomen/GI: Exam negative for discomfort, distension, guarding, Inspection: abdomen appears normal. 18:50 Skin: no rash present. Vital Signs: 18:21 BP 151 / 79; Pulse 94; Resp 19; Temp 98.1(O); Pulse Ox 99% on R/A; Weight 98.88 kg (R); rb1 Height 5 ft. 4 in. (162.56 cm) (R); Pain 7/10; 18:21 Body Mass Index 37.42 (98.88 kg, 162.56 cm) rb1 MDM: 18:36 Patient medically screened. cp 20:20 Data reviewed: vital signs, nurses notes, lab test result(s), radiologic studies, plain cp films. 20:20 Counseling: I had a detailed discussion with the patient and/or guardian regarding: the cp historical points, exam findings, and any diagnostic results supporting the discharge/admit diagnosis, lab results, radiology results, the need for outpatient follow up, a family practitioner, to return to the emergency department if symptoms worsen or persist or if there are any questions or concerns that arise at home. Response to treatment: the patient's symptoms have markedly improved after treatment, and as a result, I will discharge patient. 11/23 18:36 Order name: Influenza Screen (a \T\ B); Complete Time: 19:14 cp 11/23 19:14 Interpretation: Abnormal: FLUB FLU B ----- \T\nbsp; \T\nbsp; \T\nbsp; \T\nbsp; \T\nbsp; \T\nbs p; cp \T\nbsp; \T\nbsp; \T\nbsp; POSITIVE for FLU B protein antigen. 11/23 18:36 Order name: Strep; Complete Time: 19:14 cp 11/23 18:36 Order name: XRAY Chest Pa And Lat (2 Views); Complete Time: 19:56 11/23 19:57 Interpretation: Report reviewed. 11/23 19:12 Order name: Throat Culture EDMS Administered Medications: 19:01 Drug: Albuterol 2.5 mg Route: Inhalation; vc 19:01 Drug: AtroVENT Aerosol 0.5 mg Route: Inhalation; vc 19:01 Drug: TORadol 60 mg Route: IM; Site: right vastus lateralis; vc 20:00 Follow up: Response: No adverse reaction; Pain is unchanged, physician notified vc 20:30 Drug: Rocephin (cefTRIAXone) 1 grams Route: IM; Site: left vastus lateralis; vc 20:30 Drug: Tamiflu 75 mg Route: PO; vc 20:30 Drug: Zithromax 500 mg Route: PO; vc 20:30 Drug: Hydrocodone-Acetaminophen (7.5 mg-500 mg) 1 tabs {Note: RASS 0.} Route: PO; vc Disposition: 11/23/19 20:20 Discharged to Home. Impression: Influenza due to other identified influenza virus - influenza B, Pneumonia due to other specified bacteria. - Condition is Stable. - Discharge Instructions: Influenza, Adult, Community-Acquired Pneumonia, Adult. - Prescriptions for Tramadol 50 mg Oral Tablet - take 1 tablet by ORAL route every 8 hours as needed; 12 tablet. Zithromax Z- Mike 250 mg Oral Tablet - take 1 tablet by ORAL route as directed for 5 days Day 1 - take two (2) tablets one time. Day 2, 3, 4 , 5 take one (1) tablet once daily.; 6 tablet. Albuterol Sulfate 90 mcg/actuation - inhale 1-2 puff by INHALATION route every 4-6 hours; 1 Inhaler. Tamiflu 75 mg Oral Capsule - take 1 tablet by ORAL route every 12 hours for 5 days; 10 tablet. - Medication Reconciliation Form, Thank You Letter, Antibiotic Education, Prescription Opioid Use, Work release form form. - Follow up: Private Physician; When: 1 - 2 days; Reason: Recheck today's complaints. - Problem is new. - Symptoms have improved. Addendum: 11/26/2019 22:10 Co-signature as Attending Physician, Sawyer Armando MD. r n Signatures: Dispatcher [employer] EDMS Sawyer Armando MD MD rn Page, Corey, PA PA cp Barber, Rebecca, CHRISTIANNE RN rb1 Zeina South RN RN vc Corrections: (The following items were deleted from the chart) 11/23 21:11 20:20 11/23/2019 20:20 Discharged to Home. Impression: Influenza due to other vc identified influenza virus - influenza B; Pneumonia due to other specified bacteria. Condition is Stable. Forms are Medication Reconciliation Form, Thank You Letter, Antibiotic Education, Prescription Opioid Use. Follow up: Private Physician; When: 1 - 2 days; Reason: Recheck today's complaints. Problem is new. Symptoms have improved. cp
[2019-11-23] MEDS ORDERED: OSELTAMIVIR 75 MG CAP ONE (20:25)
[2019-11-23] MEDS ORDERED: AZITHROMYCIN 250 MG TAB ONE (20:26)
[2019-11-23] MEDS ORDERED: CEFTRIAXONE 1000 MG/VIAL ONE (20:26)
[2019-11-23] MEDS ORDERED: LIDOCAINE 1% MPF 5 ML VIAL ONE ×2 (20:27→20:31)
[2019-11-23] MEDS ORDERED: HYDROCODONE/APAP 7.5/325 MG TAB ONE (20:43)
[2019-11-23 21:15] VITALS: BP 151/79; TEMP 98.1; O2SAT 99
== END 2019-11-23 21:11 | disposition home or self-care (01) ==
LOC: ER 18:07
DX: J10.08 Influenza due to other identified influenza virus with other specified pneumonia (principal); J15.8 Pneumonia due to other specified bacteria
CPT/HCPCS: 71046; 87070; 87081; 87804; 96372; 99284